=== PATIENT | female | born 1970 | race Asian ===

== ENCOUNTER → 2024-07-19 12:35 | Outpatient (REF) | payer OTHER, SELFPAY | LOC: WDC 12:35 | PROVIDERS: ATTENDING PHYSICIAN Obstetrics & Gynecology Gynecology; FAMILY PHYSICIAN Family Medicine | DX: Z12.31 Encounter for screening mammogram for malignant neoplasm of breast (principal); E01.0 Iodine-deficiency related diffuse (endemic) goiter; E04.9 Nontoxic goiter, unspecified | CPT/HCPCS: 76536; 77063; 77067 ==